=== PATIENT | male | born 1960 | race Caucasian/White ===

== ENCOUNTER 2017-10-25 02:01 | Emergency (ER) | payer BC ==
[~2017-10-25] VITALS: Ht 190.5 cm; Wt 93.9 kg
[2017-10-25 04:01] VITALS: BP 145/89
== END 2017-10-25 04:03 | disposition home or self-care (01) ==
LOC: EME 02:01
DX: S00.03XA Contusion of scalp, initial encounter (principal); M54.2 Cervicalgia; W10.9XXA Fall (on) (from) unspecified stairs and steps, initial encounter; Y92.009 Unspecified place in unspecified non-institutional (private) residence as the place of occurrence of the external cause
CPT/HCPCS: 70450; 72125; 99281; 99284